=== PATIENT | female | born 1950 | race Caucasian/White ===

== ENCOUNTER → 2017-05-27 | Outpatient (CLI) | payer OTHER ==
[~2017-05-27] MED LIST: FIORINAL CAPSUL1 CAP PO; LISINOPRIL10 MG PO; MOTION SICKNESS25 M4 PO; MUCINEX DM1 TAB.SR . PO; ROBITUSSIN ALL118 ML PO; ZOCOR PO
--- NOTE | ~2017-05-27 | MY29 ---
[facility] A Service of [facility] RADIOLOGY TEXT RESULTS PATIENT: JESSICA BOWENS LOCATION: [facility] : 52 UNIT #: [id number] AGE: [address]: Kelby Ramirez MD SEX: F ORDER DR: [id number] [facility] [address] [place], [place] [address] [id number] O MR#: [id number] Acc #: [id number] NAME: JESSICA BOWENS : 1950 SEX: F STUDY DATE/TIME: 05/27/2017 13:24 UNIT: [facility] ROOM: STUDY DESCRIPTION: MY PURA SCREENING W/ CAD BILAT Attending Physician: Kelby Ramirez M.D. Ordering Physician: Kelby Ramirez M.D. Primary Care Physician: Kelby Ramirez M.D. MEDICAL IMAGING REPORT This report is preliminary unless electronic signature is present EXAM Digital screening mammogram, 05/27/2017 HISTORY 66-year-old woman no risk elevation. Annual screening. COMPARISON Mammograms date to 11/21/2010 with most recent 03/25/2016. FINDINGS Digital imaging of each breast was completed utilizing a two-view examination of each breast in craniocaudal and mediolateral-oblique projections. Review and interpretation of digital mammograms include a second review in conjunction with FDA-approved CAD device. There is a normal parenchymal presentation bilaterally consistent with the patient's age. There are no breast masses imaged and no parenchymal asymmetry is visualized. There are no suspicious microcalcifications and I see no focal architectural disturbance. IMPRESSION Negative screening digital mammogram. One-year followup recommended. Patients over the age of 40 are entered into a reminder system with target due date for the next mammogram. A result letter will also be sent to the patient. BIRADS: 1 Negative Dictated by... Moses Santamaria M.D. THIS IS AN ELECTRONICALLY VERIFIED REPORT Moses Santamaria M.D. at 05/28/2017 8:07 AM [facility] A Service of [facility] RADIOLOGY TEXT RESULTS PATIENT: JESSICA BOWENS LOCATION: [facility] #: [id number] : 52 UNIT #: [id number] AGE: [address]: Kelby Ramirez MD SEX: F ORDER DR: Rad TD: 05/27/2017 15:49 JOB #: [id number] MEDICAL IMAGING REPORT Page 1 of 1 COPY
== END | disposition home or self-care (01) ==
LOC: CWCC 12:42
DX: Z12.31 Encounter for screening mammogram for malignant neoplasm of breast (principal)
CPT/HCPCS: G0202